=== PATIENT | male | born 1985 | race Two or more races ===

== ENCOUNTER 2024-09-07 21:00 | Inpatient (IN) | payer BC, MEDICAID, OTHER ==
[~2024-09-07] VITALS: Ht 188 cm; Wt 128.7 kg
[2024-09-07] MEDS ORDERED: NICOTINE POLACRILEX 2 MG LOZENGE BC PRN (23:15)
[2024-09-08] MEDS ORDERED: acetaminophen 325mg tablet PO PRN (03:00)
[2024-09-08] MEDS ORDERED: mag hydrox/Alum hydrox/simeth 30ml oral suspension PO PRN (03:00)
[2024-09-08] MEDS ORDERED: magnesium hydroxide 30ml (MOM) UD suspension PO PRN (03:00)
[2024-09-08 07:00] VITALS: RESP 16; O2SAT 98
[2024-09-08 08:00] VITALS: BP 107/67; PULSE 62; RESP 16; TEMP 98.4; O2SAT 98
[2024-09-08] MEDS: acetaminophen 325mg tablet PO PRN (08:13)
[2024-09-08] MEDS: nicotine 21mg patch - 24 hr TD SCH (08:13)
[2024-09-08 17:29] LABS: CHOL/HDL RATIO 2.5 (0.00-4.99); CHOLESTEROL 107 MG/DL (0-200); HDL CHOLESTEROL 43 MG/DL (35-60); LDL CHOLESTEROL 52 MG/DL (50-100); TRIGLYCERIDES 77 MG/DL (20-135)
[2024-09-08 19:00] VITALS: RESP 16; O2SAT 99
[2024-09-08 20:00] VITALS: BP 107/71; PULSE 71; RESP 16; TEMP 98.3; O2SAT 99
[2024-09-08] MEDS: NICOTINE POLACRILEX 2 MG LOZENGE BC PRN (20:51)
[2024-09-08] MEDS: quetiapine 100mg tablet PO PRN (21:33)
[2024-09-08] MEDS: diphenhydrAMINE 25mg capsule PO PRN (22:03)
[2024-09-09 07:00] VITALS: RESP 16; O2SAT 98
[2024-09-09 07:48] LABS: BASOPHILS # (AUTO) 0.1 X10'3 (0-0.2); BASOPHILS % (AUTO) 0.7 % (0-1); EOSINOPHILS # (AUTO) 0.3 X10'3 (0-0.9); EOSINOPHILS % (AUTO) 4.6 % (0-6); HEMATOCRIT 42.9 % (42.0-52.0); HEMOGLOBIN 14.4 g/dl (14.0-17.9); LYMPHOCYTES # (AUTO) 2.5 X10'3 (1.1-4.8); LYMPHOCYTES % (AUTO) 35.6 % (21-51); MEAN CORPUSCULAR HEMOGLOBIN 29.9 PG (27.0-31.0); MEAN CORPUSCULAR HGB CONC 33.5 g/dL (33.0-36.5); MEAN CORPUSCULAR VOLUME 89.3 FL (78-98); MEAN PLATELET VOLUME 7.4 FL (7.4-10.4); MONOCYTES # (AUTO) 0.7 X10'3 (0-0.9); MONOCYTES % (AUTO) 9.9 % (2-12); NEUTROPHILS # (AUTO) 3.4 X10'3 (1.8-7.7); NEUTROPHILS % (AUTO) 49.2 % (42-75); PLATELET COUNT 300 X10'3 (140-440); RED BLOOD COUNT 4.81 X10'6 (4.70-6.10); RED CELL DISTRIBUTION WIDTH 13.9 % (11.5-14.5); WHITE BLOOD COUNT 6.9 X10'3 (4.5-11.0)
[2024-09-09 08:00] VITALS: BP 118/67; PULSE 62; RESP 16; TEMP 97.8; O2SAT 98
[2024-09-09] MEDS ORDERED: NO HOME MEDS (08:08)
[2024-09-09 08:20] LABS: ALANINE AMINOTRANSFERASE 25 U/L (12-78); ALBUMIN 3.3 G/DL (3.4-5.0); ALBUMIN/GLOBULIN RATIO 0.8 (1.1-1.5); ALKALINE PHOSPHATASE 89 IU/L (46-116); ANION GAP 7 (8-16); ASPARTATE AMINO TRANSFERASE 13 U/L (10-37); BILIRUBIN,TOTAL 0.4 MG/DL (0.1-1.0); BLOOD UREA NITROGEN 12 MG/DL (7-18); BUN/CREATININE RATIO 15.2 (10.0-20.0); CALCIUM 8.7 MG/DL (8.5-10.1); CHLORIDE 107 MMOL/L (99-107); CHOL/HDL RATIO 2.4 (0.00-4.99); CHOLESTEROL 100 MG/DL (0-200); CREATININE 0.79 MG/DL (0.60-1.10); GLUCOSE 104 MG/DL (70-104); HDL CHOLESTEROL 41 MG/DL (35-60); LDL CHOLESTEROL 52 MG/DL (50-100); POTASSIUM 4.1 MMOL/L (3.5-5.1); SODIUM 138 MMOL/L (135-145); TOTAL CARBON DIOXIDE 24.1 MMOL/L (24-32); TOTAL PROTEIN 7.4 G/DL (6.4-8.2); TRIGLYCERIDES 75 MG/DL (20-135); eCRCL 146 ML/MIN; eGFR > 90 ML/MIN
[2024-09-09 09:23] LABS: HEMOGLOBIN A1C 5.5 % (4.5-6.2)
[2024-09-09 19:00] VITALS: RESP 18; O2SAT 99
[2024-09-09 20:03] VITALS: BP 157/69; PULSE 70; RESP 18; TEMP 98.4; O2SAT 99
[2024-09-09 20:05] VITALS: RESP 18; O2SAT 99
[2024-09-10 07:00] VITALS: RESP 20; O2SAT 98
[2024-09-10 08:00] VITALS: BP 140/73; PULSE 58; RESP 20; TEMP 97.2; O2SAT 98
[2024-09-10 18:23] VITALS: RESP 18; O2SAT 98
[2024-09-10 19:08] VITALS: BP 117/75; PULSE 84; RESP 20; TEMP 98.7; O2SAT 98
[2024-09-11 07:30] VITALS: BP 114/67; PULSE 68; RESP 14; TEMP 97.9; O2SAT 96
[2024-09-11 19:00] VITALS: RESP 17; O2SAT 99
[2024-09-11 20:00] VITALS: BP 152/79; PULSE 86; RESP 17; TEMP 98.4; O2SAT 99
[2024-09-12 07:45] VITALS: BP 122/64; PULSE 56; RESP 18; TEMP 97; O2SAT 98
[2024-09-12 19:00] VITALS: RESP 18; O2SAT 99
[2024-09-12 19:54] VITALS: BP 133/80; PULSE 74; RESP 18; TEMP 98.6; O2SAT 99
[2024-09-13 02:42] VITALS: RESP 18; O2SAT 99
[2024-09-13 07:30] VITALS: BP 104/65; PULSE 55; RESP 16; TEMP 97.5; O2SAT 98
[2024-09-13 19:00] VITALS: RESP 20; O2SAT 98
[2024-09-13 20:00] VITALS: BP 140/75; PULSE 92; RESP 20; TEMP 98.4; O2SAT 98
[2024-09-14 07:00] VITALS: RESP 17; O2SAT 99
[2024-09-14 08:00] VITALS: BP 128/69; PULSE 92; RESP 17; TEMP 98.3; O2SAT 99
== END 2024-09-14 14:56 | disposition home or self-care (01) | DRG 897 ==
LOC: ADULT MH 21:00
PROVIDERS: ADMIT Psychiatry & Neurology Psychiatry; ATTEND Psychiatry & Neurology Psychiatry
PROC: GZHZZZZ Group Psychotherapy (ICD-10-PCS; principal; 2024-09-08)
PROC: GZ51ZZZ Individual Psychotherapy, Behavioral (ICD-10-PCS; 2024-09-08)
DX: F15.259 Other stimulant dependence with stimulant-induced psychotic disorder, unspecified (principal); N39.0 Urinary tract infection, site not specified; R45.851 Suicidal ideations; Z59.00 Homelessness unspecified; F23 Brief psychotic disorder; F15.20 Other stimulant dependence, uncomplicated; E03.9 Hypothyroidism, unspecified; E66.9 Obesity, unspecified; F17.210 Nicotine dependence, cigarettes, uncomplicated; F32.A Depression, unspecified; I10 Essential (primary) hypertension; Z82.49 Family history of ischemic heart disease and other diseases of the circulatory system; Z83.3 Family history of diabetes mellitus; Z68.36 Body mass index [BMI] 36.0-36.9, adult
CPT/HCPCS: 36415; 80053; 80061; 83036; 84443; 85025; 87081; A6212; A6223; A6258; A6446; A6449; Q0163

== ENCOUNTER 2024-10-06 06:34 | Inpatient (IN) | payer MEDICAID ==
[~2024-10-06] VITALS: Ht 188 cm; Wt 128.3 kg
[~2024-10-06 06:34] MED LIST: NO HOME MEDS
[2024-10-06 11:17] VITALS: BP 109/60; PULSE 63; RESP 16; TEMP 97.5; O2SAT 97
[2024-10-06] MEDS ORDERED: acetaminophen 325mg tablet PO PRN ×2 (11:35)
[2024-10-06] MEDS ORDERED: diphenhydrAMINE 25mg capsule PO PRN (11:35)
[2024-10-06] MEDS ORDERED: magnesium hydroxide 30ml (MOM) UD suspension PO PRN (11:35)
[2024-10-06] MEDS ORDERED: loperamide 2mg capsule PO PRN (11:35)
[2024-10-06] MEDS ORDERED: mag hydrox/Alum hydrox/simeth 30ml oral suspension PO PRN (11:35)
[2024-10-06] MEDS: nicotine 21mg patch - 24 hr TD ONE (12:03)
[2024-10-06] MEDS: NICOTINE POLACRILEX 2 MG LOZENGE BC PRN (12:03)
[2024-10-06 13:15] VITALS: RESP 16; O2SAT 97
--- NOTE | 2024-10-06 15:33 | HISTORY AND PHYSICAL ---
History & Physical - Blank History and Physical CHIEF COMPLIANT AUDITORY HALLUCINATIONS AND SUICIDAL IDEATION HISTORY OF PRESENT ILLNESS 8-year-old male patient with suspected history of schizophrenia, presents to the emergency department on a 5150 hold patient apparently endorsing auditory hallucinations was holding a knife to his throat earlier, hallucinations telling him to kill himself. By knife he was holding a razor blade to his throat per [facility]. Patient brought multiple belongings in with him to the emergency department. Has not endorsed suicidal ideation in the emergency department but did when he was placed on a 5150 hold prior to arrival. Patient admits to polysubstance abuse and tells us that he has an iron man soon at home. Smokes two joints a week, drinks alcohol, says he is allergic to meth but still uses meth. CHART REVIEW Police Department dispatch [facility] to their lobby where client went and asked for help. Client reports that he is feeling suicidal in his having like ideas, looking at multiple items thinking of ways to kill himself. Client reports he had a razor blade to his throat earlier in intended on cutting it but was interrupted and that is when he went down to the police station. Client is responding to internal stimuli upon interviewing, paranoid of the cameras at the police station "shhh they can hear us." If we go outside so they are not spying on me. Client reports that he is neighbors are plotting against him and that he things they are going to hurt him and will hurt him if he thinks they are going to do that. Client has a flat affect, reports racing thoughts, increased suicidal ideation. Client had called [facility] earlier in the day and reports that he got to paranoid so he yelled ask staff to leave. Client was very apologetic about it. Client was placed on a 5150 DTS hold. ASSESSMENT The patient was interviewed in observation room. The patient was actively sitting in rec room appears to be watching TV. The patient endorses "Tired." The patient endorses "I was having suicidal ideation. I ended up back on meth. I was having meth induced psychosis. The patient endorses he has been doing meth for 20 years. The patient endorses he started Narcotic Anonymous (NA) 2 days to get off Meth. The patient endorses he went back to [facility] to get moved out of house and move back to [place] and he ended up using again after been sober for 2 weeks. The patient endorses he was substituting alcohol for meth. "I was drinking myself to sleep." "I know I am depressed that is why I self medicate with meth and alcohol." The patient is reluctant to take medications. "I self medicate, that is why I like meth it levels me out." "I feel needs to be on some place with a drug test me everyday and I am the around meth or alcohol." Denies SI. Denies HI. Denies AVH. The patient endorses adequate sleep and food. The patient is stable no acute distress noted. The patient is irritable, depressed, and engaged during session. Will continue daily assessment and adjusting treatment as needed. Closely monitor behavior and response to medication during hospitalization. Discussed treatment plan with patient. ASE/risks and benefits of chosen treatment. He verbalized understanding and consented to treatment. REVIEW OF LABS URINE DRUG SCREEN POSITIVE FOR AMPHETAMINES URINALYSIS NEGATIVE COVID NEGATIVE INFLUENZA A AND INFLUENZA B NEGATIVE WBC 9.0 RBC 4.77 HEMOGLOBIN 14.3 HEMATOCRIT 42.6 PLATELETS 285 SODIUM 142 POTASSIUM 3.6 CHLORIDE 110 ANION GAP 11 GLUCOSE 104 BUN 11 CREATININE 0.87 CALCIUM 9.5ALT 24 AST 21 FREE T4 0.82 TSH 3.20 MENTAL STATUS EXAM APPEARANCE:UNKEMPT. OBESE TALL MALE. WEARING GREEN SCRUBS. SPEECH: CIRCUMSTANTIAL, HYPERVERBAL EYE CONTACT: NORMAL AFFECT: FULL MOOD: DEPRESSED ORIENTATION IMPAIRMENT: NONE MEMORY IMPAIRMENT: NONE ATTENTION: FULL HALLUCINATIONS: NONE SUICIDALITY: NONE DELUSIONS: NONE BEHAVIOR: HYPERACTIVE JUDGMENT: POOR INSIGHT: POOR TREATMENT The patient is refusing medication. We will monitor patient a few days and if still refusing medications will do a Riese. Monitoring by Staff, Milieu, Group, and Individual counseling as needed -- According to the [place] Suicide Assessment the above named patient is on Q15 MINUTE CHECKS. [id number]- The patient does not have a good safety plan for discharge at this time. We are still titrating medications to an effective dose while maintaining a therapeutic environment to prevent decompensation and readmission. REVIEW OF Clinical notes [X ] RN notes [X] PCT documentation [X] SW notes Labs [ X] Medications [X] Care trends/care activity [X] Vitals [X] DISCUSSION WITH tamale machine feeder [X] Staff SW [X] Treatment Team [X] DISCHARGE UNSURE AT THIS TIME. [facility] OR [facility] Past Psychiatric History Past Psychiatric History DISCHARGE FROM [facility] LAST MON[facility] FOR ATTEMPTED SUICIDE Past Medical History Past Medical History SEE MEDICAL H AND P Past Surgical History Past Surgical History LEFT ANKLE SURGERY Past Family History Patient History: FH: heart disease Maternal grandmother FH: hypothyroidism MOTHER History of insulin dependent diabetes mellitus in mother Maternal grandmother History of non-insulin dependent diabetes mellitus in mother MOTHER Substance Abuse History Substance Abuse History TOBACCO DAILY MARIJUANA DAILY ALCOHOL WANTED 2 TIMES PER WEEK METHAMPHETAMINES DAILY Personal History Current Living Situation HOMELESS Marital & Relationship History . FOUR CHILDREN. SINGLE Sexual History DEFER Occupational History UNEMPLOYED Social Activity BORN AND RAISED IN [facility] [employer] Legal History DWI POSSESSION OF CONTROLLED SUBSTANCE DOMESTIC BATTERY History DENIES ANY HISTORY Developmental History Childhood GO, EMOTIONAL, VERBAL ABUSE FROM BOTH PARENTS Assessment/Plan Problems/Diagnosis: (1) Methamphetamine-induced psychotic disorder (2) Auditory hallucination CODING VISIT-PSYCHIATRY Date of Service: Oct 06, 2024 Billing Provider: SHAHRAM GOINS APRN Psych Common Visit Codes: [id number] INP/OBS CARE (High) SHAHRAM GOINS APRN Oct 06, 2024 15:33
[2024-10-06 20:00] VITALS: BP 148/75; PULSE 59; RESP 18; TEMP 98.7; O2SAT 98
[2024-10-07 07:00] VITALS: RESP 16
[2024-10-07] MEDS: nicotine 21mg patch - 24 hr TD SCH (07:47)
[2024-10-07 08:00] VITALS: RESP 16
[2024-10-07 08:36] LABS: CHOL/HDL RATIO 2.3 (0.00-4.99); CHOLESTEROL 117 MG/DL (0-200); HDL CHOLESTEROL 51 MG/DL (35-60); LDL CHOLESTEROL 52 MG/DL (50-100); THYROID STIMULATING HORMONE 6.13 ulU/ml (0.34-4.50); TRIGLYCERIDES 51 MG/DL (20-135)
--- NOTE | 2024-10-07 12:10 | PROGRESS NOTE ---
Progress Note Dictate Providers to CC ~ Central Line/PICC still needed: N\\A Antibiotic Ordered?: No MRSA Education MRSA Education Provided to pt: No Objective Vitals Vital Signs Date Time Temp Pulse Resp B/P (MAP) Pulse Ox O2 Delivery O2 Flow Rate FiO2 10/07/24 08:00 16 Room Air 10/06/24 20:00 98.7 59 148/75 (99) 98 Counseling Services Smoking & Tobacco Cessation: > 10 Minutes Problem\\Assessment\\Plan Problems/Diagnosis: (1) Methamphetamine-induced psychotic disorder (2) Auditory hallucination Psychiatrist's Progress Note Date of Service: Oct 07, 2024 Notes CHIEF COMPLIANT AUDITORY HALLUCINATIONS AND SUICIDAL IDEATION HISTORY OF PRESENT ILLNESS 8-year-old male patient with suspected history of schizophrenia, presents to the emergency department on a 5150 hold patient apparently endorsing auditory hallucinations was holding a knife to his throat earlier, hallucinations telling him to kill himself. By knife he was holding a razor blade to his throat per Mental Health. Patient brought multiple belongings in with him to the emergency department. Has not endorsed suicidal ideation in the emergency department but did when he was placed on a 5150 hold prior to arrival. Patient admits to polysubstance abuse and tells us that he has an iron man soon at home. Smokes two joints a week, drinks alcohol, says he is allergic to meth but still uses meth. CHART REVIEW Police Department dispatch [facility] to their lobby where client went and asked for help. Client reports that he is feeling suicidal in his having like ideas, looking at multiple items thinking of ways to kill himself. Client reports he had a razor blade to his throat earlier in intended on cutting it but was interrupted and that is when he went down to the police station. Client is responding to internal stimuli upon interviewing, paranoid of the cameras at the police station "shhh they can hear us." If we go outside so they are not spying on me. Client reports that he is neighbors are plotting against him and that he things they are going to hurt him and will hurt him if he thinks they are going to do that. Client has a flat affect, reports racing thoughts, increased suicidal ideation. Client had called [facility] earlier in the day and reports that he got to paranoid so he yelled ask staff to leave. Client was very apologetic about it. Client was placed on a 5150 DTS hold. ASSESSMENT The patient was interviewed in observation room. The patient was actively sitting in rec room appears to be watching TV. The patient endorses 'Okay." The patient endorses no worsening mental health symptoms. Denies SI. Denies HI. Denies AVH. The patient endorses adequate sleep and food. The patient is stable no acute distress noted. The patient is cooperative, calm, and engaged during session. The patient seems to be minimizing his symptoms. Staff report no abnormal behaviors. Will continue daily assessment and adjusting treatment as needed. Closely monitor behavior and response to medication during hospitalization. Appearnace: Other Speech: Other (CIRCUMSTANTIAL) Eye Contact: Normal Motor Activity: Normal Affect: Full Orientation Impairment: None Memory Impairment: None Attention: Normal Hallucinations: None Other: None Suicidality: None Homicidality: None Delusions: None Behavior: Cooperative Insight: Fair Judgment: Fair Treatment The patient is refusing medication Monitoring by Staff, Milieu, Group, and Individual counseling as needed -- According to the [place] Suicide Assessment the above named patient is on Q15 MINUTE CHECKS. [id number]- The patient does not have a good safety plan for discharge at this time. We are still titrating medications to an effective dose while maintaining a therapeutic environment to prevent decompensation and readmission. REVIEW OF Clinical notes [X ] RN notes [X] PCT documentation [X] SW notes Labs [ X] Medications [X] Care trends/care activity [X] Vitals [X] DISCUSSION WITH sign wirer [X] Staff SW [X] Treatment Team [X] Discharge UNSURE AT THIS TIME. [facility] OR [employer] CODING VISIT-PSYCHIATRY Date of Service: Oct 07, 2024 Billing Provider: SHAHRAM GOINS APRN Psych Common Visit Codes: [id number] INP/OBS CARE(Mod) SHAHRAM GOINS APRN Oct 07, 2024 12:10
[2024-10-07 19:00] VITALS: RESP 18; O2SAT 99
[2024-10-07 20:00] VITALS: BP 118/64; PULSE 70; RESP 18; TEMP 98.1; O2SAT 99
--- NOTE | 2024-10-07 21:01 | HISTORY AND PHYSICAL ---
History & Physical Providers to CC ~ History of Present Illness Reason for Admit\Complaint: Auditory hallucination and suicidal ideation History of Present Illness Patient is here in mental health unit because of suicidal ideation. Patient is already seen by psychiatric team. Psychiatric consult note reviewed. Patient admitted using meth recently. Patient has hypothyroidism and hypertension which is stable and currently not on any medications. Patient denies any other symptoms to me no other acute medical issues Allergies: Coded Allergies: povidone-iodine (Verified Allergy, Unknown, 09/08/24) Home Medications Home Medications Active Reported No Home Medications (Home Med List) Each Past Medical History Past Medical History Hypothyroidism, hypertension Past Surgical History Surgical History Comment Right ankle surgery Family History Family History: FH: heart disease Maternal grandmother FH: hypothyroidism MOTHER History of insulin dependent diabetes mellitus in mother Maternal grandmother History of non-insulin dependent diabetes mellitus in mother MOTHER Past Social History Social History Comment Smokes half a pack of cigarettes a day, drinks a few times a week, uses methamphetamines including snorting, smoking, and IV, smokes cannabis ROS ROS Review of system as mentioned above in HPI rest of the review of system unremarkable Exam Vitals: Vital Signs Date Time Temp Pulse Resp B/P (MAP) Pulse Ox O2 Delivery O2 Flow Rate FiO2 10/07/24 19:00 18 99 Room Air 10/06/24 20:00 98.7 59 148/75 (99) General: General-patient not in any acute distress, alert awake oriented, not ill-appearing/age-appropriate/looks comfortable HEENT-atraumatic normocephalic, neck supple without elevated JVD, no thyromegaly or carotid bruit. No lymphadenopathy bilaterally. Eyes-no icterus or pallor seen in eyes Chest-clear to auscultation bilaterally, breathing nonlabored no tachypnea, no wheezing, no crepitation, no crackles. Heart-S1-S2 normal, regular heart rate no murmur Abdomen bowel sounds positive on auscultation, soft nondistended nontender no guarding, no rigidity Skin no active skin rash Neurology-grossly intact, nonfocal alert awake oriented Extremity- no pedal edema able to move all 4 extremities Psychiatry - patient is not confused or agitated cooperated during physical examination Additional Plan # psychoses with suicidal ideation and suicidal gesture/ attempt Unknown if underlining psychiatric condition however the patient appears to use methamphetamines heavily which is a contributing factor. Psychiatry following as well as clinical social work aide # hypothyroidism- TSH 6.20 # hypertension- currently normotensive Monitor blood pressure Q shift Awaiting med reconciliation # Tobacco abuse-patient is using nicotine patch and smoking cessation counseling done with patient The Hospitalist service will continue to follow the patient. Date of Service: Oct 07, 2024 Billing Provider: JAMI MARQUES MD Common Visit Codes: [id number] INP/OBS CARE (LOW) JAMI MARQUES MD Oct 07, 2024 21:01
[2024-10-08 07:00] VITALS: RESP 16; O2SAT 96
--- NOTE | 2024-10-08 08:21 | PROGRESS NOTE ---
Progress Note Dictate Providers to CC ~ Central Line/PICC still needed: N\\A Antibiotic Ordered?: No MRSA Education MRSA Education Provided to pt: No Objective Vitals Vital Signs Date Time Temp Pulse Resp B/P (MAP) Pulse Ox O2 Delivery O2 Flow Rate FiO2 10/07/24 20:00 98.1 70 18 118/64 (82) 99 Room Air Counseling Services Smoking & Tobacco Cessation: > 10 Minutes Problem\\Assessment\\Plan Problems/Diagnosis: (1) Methamphetamine-induced psychotic disorder (2) Auditory hallucination Psychiatrist's Progress Note Date of Service: October 08, 2024 Notes CHART REVIEW Police Department dispatch [facility] to their lobby where client went and asked for help. Client reports that he is feeling suicidal in his having like ideas, looking at multiple items thinking of ways to kill himself. Client reports he had a razor blade to his throat earlier in intended on cutting it but was interrupted and that is when he went down to the police station. Client is responding to internal stimuli upon interviewing, paranoid of the cameras at the police station "shhh they can hear us." If we go outside so they are not spying on me. Client reports that he is neighbors are plotting against him and that he things they are going to hurt him and will hurt him if he thinks they are going to do that. Client has a flat affect, reports racing thoughts, increased suicidal ideation. Client had called [facility] earlier in the day and reports that he got to paranoid so he yelled ask staff to leave. Client was very apologetic about it. Client was placed on a 5150 DTS hold. ASSESSMENT The patient was interviewed in observation room. The patient was actively walking in hallway. The patient endorses 'Good." The patient endorses no worsening mental health symptoms. Denies SI. Denies HI. Denies AVH. The patient endorses adequate sleep and food. The patient is stable no acute distress noted. The patient is cooperative, calm, and engaged during session. Report no abnormal behaviors. Will continue daily assessment and adjusting treatment as needed. Closely monitor behavior and response to medication during hospitalization. Results Of any Diagn. Testing REVIEW OF LABS URINE DRUG SCREEN POSITIVE FOR AMPHETAMINES URINALYSIS NEGATIVE COVID NEGATIVE INFLUENZA A AND INFLUENZA B NEGATIVE WBC 9.0 RBC 4.77 HEMOGLOBIN 14.3 HEMATOCRIT 42.6 PLATELETS 285 SODIUM 142 POTASSIUM 3.6 CHLORIDE 110 ANION GAP 11 GLUCOSE 104 BUN 11 CREATININE 0.87 CALCIUM 9.5ALT 24 AST 21 FREE T4 0.82 TSH 3.20 Speech: Other (CIRCUMSTANTIAL) Eye Contact: Other (INTERMITTENT) Motor Activity: Normal Affect: Flat Orientation Impairment: None Memory Impairment: None Attention: Normal Hallucinations: None Other: None Suicidality: None Homicidality: None Delusions: None Behavior: Guarded Insight: Poor Judgment: Poor Treatment The patient is refusing medication Monitoring by Staff, Milieu, Group, and Individual counseling as needed -- According to the [place] Suicide Assessment the above named patient is on Q15 MINUTE CHECKS. [id number]- The patient does not have a good safety plan for discharge at this time. We are still titrating medications to an effective dose while maintaining a therapeutic environment to prevent decompensation and readmission. REVIEW OF Clinical notes [X ] RN notes [X] PCT documentation [X] SW notes Labs [ X] Medications [X] Care trends/care activity [X] Vitals [X] DISCUSSION WITH proctologist [X] Staff SW [X] Treatment Team [X] Discharge UNSURE AT THIS TIME. [facility] OR [employer] CODING VISIT-PSYCHIATRY Date of Service: October 08, 2024 Billing Provider: SHAHRAM GOINS APRN Psych Common Visit Codes: [id number] INP/OBS CARE(Mod) SHAHRAM GOINS APRN October 08, 2024 08:21
[2024-10-08 09:17] VITALS: BP 138/91; PULSE 82; RESP 16; TEMP 98.3; O2SAT 96
[2024-10-08 19:00] VITALS: RESP 14; O2SAT 96
[2024-10-08 20:00] VITALS: BP 94/61; PULSE 65; RESP 14; TEMP 97.7; O2SAT 96
[2024-10-09 07:00] VITALS: RESP 20; O2SAT 98
[2024-10-09 08:00] VITALS: BP 153/85; PULSE 60; RESP 20; TEMP 97.4; O2SAT 98
--- NOTE | 2024-10-09 09:07 | PROGRESS NOTE ---
Progress Note Dictate Providers to CC ~ Central Line/PICC still needed: N\\A Antibiotic Ordered?: No MRSA Education MRSA Education Provided to pt: No Objective Vitals Vital Signs Date Time Temp Pulse Resp B/P (MAP) Pulse Ox O2 Delivery O2 Flow Rate FiO2 10/08/24 20:00 97.7 65 14 94/61 (72) 96 Room Air Counseling Services Smoking & Tobacco Cessation: > 10 Minutes Problem\\Assessment\\Plan Problems/Diagnosis: (1) Methamphetamine-induced psychotic disorder (2) Auditory hallucination (3) Depression, unspecified Psychiatrist's Progress Note Date of Service: October 09, 2024 Notes CHART REVIEW Police Department dispatch [facility] to their lobby where client went and asked for help. Client reports that he is feeling suicidal in his having like ideas, looking at multiple items thinking of ways to kill himself. Client reports he had a razor blade to his throat earlier in intended on cutting it but was interrupted and that is when he went down to the police station. Client is responding to internal stimuli upon interviewing, paranoid of the cameras at the police station "shhh they can hear us." If we go outside so they are not spying on me. Client reports that he is neighbors are plotting against him and that he things they are going to hurt him and will hurt him if he thinks they are going to do that. Client has a flat affect, reports racing thoughts, increased suicidal ideation. Client had called [facility] earlier in the day and reports that he got to paranoid so he yelled ask staff to leave. Client was very apologetic about it. Client was placed on a 5150 DTS hold. ASSESSMENT The patient was interviewed in observation room. The patient was actively resting in bed with eyes closed. The patient endorses 'fine." "I am very de pressed." "I don't think medication will help me; I just need to get into rehab where I am not around the drugs and alcohol." Denies SI. Denies HI. Denies AVH. The patient endorses adequate sleep and food. The patient is stable no acute distress noted. The patient is guarded,depressed, and engaged during session. Per staff report no abnormal behaviors. Extensive education was given to the patient regarding medication to help with his depression. The patient verbalizes "I will think about it." The patient informed I will prescribe Remeron. The patient was informed I can not force him to take medication and he has the right to refuse. Per staff report the patient has no abnormal behaviors. Will continue daily assessment and adjusting treatment as needed. Closely monitor behavior and response to medication during hospitalization. Per belt worker's note referral was made to [employer]. Results Of any Diagn. Testing Results Of any Diagn. Testing REVIEW OF LABS URINE DRUG SCREEN POSITIVE FOR AMPHETAMINES URINALYSIS NEGATIVE COVID NEGATIVE INFLUENZA A AND INFLUENZA B NEGATIVE WBC 9.0 RBC 4.77 HEMOGLOBIN 14.3 HEMATOCRIT 42.6 PLATELETS 285 SODIUM 142 POTASSIUM 3.6 CHLORIDE 110 ANION GAP 11 GLUCOSE 104 BUN 11 CREATININE 0.87 CALCIUM 9.5ALT 24 AST 21 FREE T4 0.82 TSH 3.20 Appearnace: Other Speech: Impoverished Eye Contact: Avoidant Motor Activity: Normal Affect: Flat Mood: Depressed Orientation Impairment: None Memory Impairment: None Attention: Normal Hallucinations: None Other: None Suicidality: None Homicidality: None Delusions: None Behavior: Guarded Insight: Poor Judgment: Poor Treatment Initiate REMERON 15MG PO QHS-DEPRESSION/CRAVINGS Monitoring by Staff, Milieu, Group, and Individual counseling as needed -- According to the [place] Suicide Assessment the above named patient is on Q15 MINUTE CHECKS. VOLUNTARY REVIEW OF Clinical notes [X ] RN notes [X] PCT documentation [X] SW notes Labs [ X] Medications [X] Care trends/care activity [X] Vitals [X] DISCUSSION WITH ground equipment mechanic [X] Staff SW [X] Treatment Team [X] Discharge UNSURE AT THIS TIME. [facility] OR [employer] CODING VISIT-PSYCHIATRY Date of Service: October 09, 2024 Billing Provider: SHAHRAM GOINS APRN Psych Common Visit Codes: [id number] INP/OBS CARE(Mod) SHAHRAM GOINS APRN October 09, 2024 09:07
--- NOTE | 2024-10-09 17:46 | PROGRESS NOTE- Residence ---
Progress Note - Resident Providers to CC Resident Creating Document: LIZBET RIVAS RES CC: WILMAR VILCHIS MD ~ Central Line/PICC still needed: N\A Antibiotic Timeout Antibiotic Ordered?: No Subjective Patient is seen this evening. No complaints. He stated he had hypothyroidism and hypertension but he did not take any medications in the past Objective Vital Signs Date Time Temp Pulse Resp B/P (MAP) Pulse Ox O2 Delivery O2 Flow Rate FiO2 //25 08:00 97.4 60 20 153/85 (107) 98 Room Air General: Adult male, AAO x4, not in apparent distress Head: Normocephalic with an atraumatic Eyes: Pupils- 3mm, reacting to light, conjunctiva- anicteric Nose and throat: No polyps, septum- normal, no mucosal ulcers Neck: Supple, no lymphadenopathy, no carotid bruit Respiratory: No use of accessory muscles of respiration, Bilateral normal vesiscular breath sounds heard. No wheeze, rhochi or creps Cardiac: S1-S2 heard, rythm regular, no gallop/murmur Abdomen: non distended, no tenderness, no organomegaly, bowel sounds- heard Extremities: no clubbing, no pedal edema, no deformities, peripheral pulses- 2+ Skin: warm and dry, no rash, no purpura Neuro: No focal deficit, gross cranial nerve exam- normal Assessment Assessment 38 year male admitted to [facility] for psychosis with suicidal ideation Plan Plan Psychosis with suicidal ideation -management per Psychiatry Subclinical Hypothyroidism TSH 6.1 Repeat TSH in three months Hypertension -started on amlodipine 2.5 mg once a day Methamphetamine abuse- counseling given Tobacco abuse- continue nicotine patch, and gum Date of Service: October 09, 2024 Billing Provider: WILMAR VILCHIS MD Common Visit Codes: [id number] INP/OBS CARE(MOD) LIZBET RIVAS RES October 09, 2024 17:46 WILMAR VILCHIS MD October 09, 2024 21:22
[2024-10-09 19:00] VITALS: RESP 16; O2SAT 94
[2024-10-09 20:00] VITALS: BP 117/65; PULSE 68; RESP 16; TEMP 98.5; O2SAT 94
[2024-10-10 07:00] VITALS: RESP 16; O2SAT 97
[2024-10-10 08:00] VITALS: BP 99/55; PULSE 60; RESP 16; TEMP 97.3; O2SAT 97
[2024-10-10] MEDS: amLODIPine 2.5mg tablet PO SCH (08:00)
--- NOTE | 2024-10-10 15:13 | PROGRESS NOTE ---
Progress Note Dictate Providers to CC ~ Central Line/PICC still needed: N\\A Antibiotic Ordered?: No MRSA Education MRSA Education Provided to pt: No Objective Vitals Vital Signs Date Time Temp Pulse Resp B/P (MAP) Pulse Ox O2 Delivery O2 Flow Rate FiO2 10/10/24 08:00 78 10/10/24 08:00 97.3 16 99/55 (70) 97 Room Air Problem\\Assessment\\Plan Problems/Diagnosis: (1) Methamphetamine-induced psychotic disorder (2) Auditory hallucination (3) Depression, unspecified Psychiatrist's Progress Note Date of Service: October 10, 2024 Notes CHART REVIEW Police Department dispatch [facility] to their lobby where client went and asked for help. Client reports that he is feeling suicidal in his having like ideas, looking at multiple items thinking of ways to kill himself. Client reports he had a razor blade to his throat earlier in intended on cutting it but was interrupted and that is when he went down to the police station. Client is responding to internal stimuli upon interviewing, paranoid of the cameras at the police station "shhh they can hear us." If we go outside so they are not spying on me. Client reports that he is neighbors are plotting against him and that he things they are going to hurt him and will hurt him if he thinks they are going to do that. Client has a flat affect, reports racing thoughts, increased suicidal ideation. Client had called [facility] earlier in the day and reports that he got to paranoid so he yelled ask staff to leave. Client was very apologetic about it. Client was placed on a 5150 DTS hold. ASSESSMENT The patient was interviewed in observation room. The patient was actively resting in bed with eyes closed. The patient endorses 'I'm depressed." When patient was asked about medication and therapy he closed his eyes and would not say anything else. Denies SI. Denies HI. Denies AVH. The patient endorses adequate sleep and food. The patient is stable no acute distress noted. The patient is guarded, anxious, and disengaged during session. Per staff report no abnormal behaviors. Per staff report the patient has no abnormal behaviors. Will continue daily assessment and adjusting treatment as needed. Closely monitor behavior and response to medication during hospitalization. Results Of any Diagn. Testing REVIEW OF LABS URINE DRUG SCREEN POSITIVE FOR AMPHETAMINES URINALYSIS NEGATIVE COVID NEGATIVE INFLUENZA A AND INFLUENZA B NEGATIVE WBC 9.0 RBC 4.77 HEMOGLOBIN 14.3 HEMATOCRIT 42.6 PLATELETS 285 SODIUM 142 POTASSIUM 3.6 CHLORIDE 110 ANION GAP 11 GLUCOSE 104 BUN 11 CREATININE 0.87 CALCIUM 9.5ALT 24 AST 21 FREE T4 0.82 TSH 3.20 Appearnace: Other Speech: Impoverished Eye Contact: Avoidant Motor Activity: Normal Affect: Flat Mood: Anxious, Depressed Hallucinations: None Behavior: Guarded Insight: Poor Judgment: Poor Treatment REMERON 15MG PO QHS-DEPRESSION/CRAVINGS Monitoring by Staff, Milieu, Group, and Individual counseling as needed -- According to the [place] Suicide Assessment the above named patient is on Q15 MINUTE CHECKS. VOLUNTARY REVIEW OF Clinical notes [X ] RN notes [X] PCT documentation [X] SW notes Labs [ X] Medications [X] Care trends/care activity [X] Vitals [X] DISCUSSION WITH stretching press operator [X] Staff SW [X] Treatment Team [X] Discharge UNSURE AT THIS TIME. [facility] OR [place] CODING VISIT-PSYCHIATRY Date of Service: October 10, 2024 Billing Provider: SHAHRAM GOINS APRN Psych Common Visit Codes: [id number] INP/OBS CARE(Mod) SHAHRAM GOINS APRN October 10, 2024 15:13
[2024-10-10 18:58] VITALS: RESP 16; O2SAT 97
[2024-10-10] MEDS: chlorproMAZINE 25mg tablet PO PRN (19:32)
[2024-10-10] MEDS: hydrOXYzine 25 MG tablet PO PRN (19:32)
[2024-10-10 20:00] VITALS: RESP 16
[2024-10-10] MEDS: mirtazapine 15mg tablet PO SCH (20:19)
[2024-10-11 07:30] VITALS: BP 105/59; PULSE 70; RESP 16; TEMP 97.1; O2SAT 98
--- NOTE | 2024-10-11 11:25 | PROGRESS NOTE ---
Daily Progress Note Providers to CC No new complaint today, resting comfortably in the bed ~ Central Line/PICC still needed: No [place]-Non Protocol [place] Indications Met/Not Met: F/C Indications Not Met Antibiotic Timeout Antibiotic Ordered?: No MRSA Education MRSA Education Provided to pt: No Subjective As above Objective Vital Signs Date Time Temp Pulse Resp B/P (MAP) Pulse Ox O2 Delivery O2 Flow Rate FiO2 10/11/24 07:54 70 10/10/24 20:00 16 10/10/24 18:58 97 Room Air 10/10/24 08:00 97.3 99/55 (70) Vital signs, stable ,afebrile. Pulse Oximetry reflects adequate oxygenation. General: well developed, well nourished. Awake , alert, and oriented x4, resting comfortably in the bed, in no acute distress . Skin: Warm, dry, no pallor, no rash or petechiae. HEENT: Atraumatic, normocephalic, EOMI, anicteric sclera B; pink conjunctiva; PERRLA, normal oropharynx, moist oral and nasal mucosa. Tympanic membrane , nose , throat clear. Neck: Trachea midline. Supple, full range of motion, no JVD, bruit , hepatojug ular reflex , lymphadenopathy or masses, or other lesions Cardiac: Regular rhythm, regular rate no murmurs, rubs, or gallops. Normal S1 and S2, no S3 noticed. PMI is normal. Respiratory: Equal breath sounds bilaterally, no tachypnea; lungs clear to au scultation bilaterally, no wheezing ,rub or rales, or crackles. Chest wall is symmetric and without deformity. No signs of trauma. Chest wall is nontender. No signs of respiratory distress. Resonance is normal upon percussion bilaterally. Gastrointestinal: Abdomen symmetric, non-distended, soft, non-tender, normal bowel sounds x4 quadrant, normoactive, no hepatosplenomegaly , no masses , no bruit, no flank pain bilaterally. No voluntary guarding, rebound, or rigidity. No tenderness to percussion. No pulsatile masses. Equal femoral pulses. No Blackmon's sign or McBurney point tenderness. Back; no CVA tenderness bilaterally, no deformities. Neck and back are without deformity as well. No tenderness noted on palpation of the spinous processes. Spinous processes are midline. Cervical, thoracic, and lumbar paraspinal muscles are not tender and are without spasm. : normal external genitalia, without lesions, swelling, masses or tenderness. Musculoskeletal: Extremities, normal range of motion, non-tender, muscle strength 5/5 x 4. Negative Homans signs bilaterally on lower extremity. Distal pulses full symmetrical, no clubbing, cyanosis , edema. Neurological: Speech is clear, alert, and oriented x 4. No motor or sensory deficit, deep tendon reflexes normal, cerebellar intact. Cranial nerves II-XII intact. Psych: Alert and or appropriate, normal affect. Vascular: Good distal pulses, which are equal x4; capillary refill less than 2 seconds. Lymphatic, no lymphadenopathy. Problem\Assessment\Plan Assessment 38 year male admitted to [facility] for psychosis with suicidal ideation Plan Psychosis with suicidal ideation -management per Psychiatry Subclinical Hypothyroidism TSH 6.1 Repeat TSH in three months Hypertension -started on amlodipine 2.5 mg once a day Methamphetamine abuse- counseling given Tobacco abuse- continue nicotine patch, and gum Hospitalist team we will follow patient per hospital protocol Sepsis Screening Reassessment Date: October 11, 2024 Date of Service: October 11, 2024 Billing Provider: JAIME ROA MD Common Visit Codes: [id number] INP/OBS CARE(LOW) JAIME ROA MD October 11, 2024 11:25
--- NOTE | 2024-10-11 11:25 | PROGRESS NOTE ---
Progress Note Dictate Providers to CC ~ Central Line/PICC still needed: N\\A Antibiotic Ordered?: No MRSA Education MRSA Education Provided to pt: No Objective Vitals Vital Signs Date Time Temp Pulse Resp B/P (MAP) Pulse Ox O2 Delivery O2 Flow Rate FiO2 10/11/24 07:54 70 10/10/24 20:00 16 10/10/24 18:58 97 Room Air 10/10/24 08:00 97.3 99/55 (70) Problem\\Assessment\\Plan Problems/Diagnosis: (1) Methamphetamine-induced psychotic disorder (2) Auditory hallucination (3) Depression, unspecified Psychiatrist's Progress Note Date of Service: October 11, 2024 Notes CHART REVIEW Police Department dispatch [facility] to their lobby where client went and asked for help. Client reports that he is feeling suicidal in his having like ideas, looking at multiple items thinking of ways to kill himself. Client reports he had a razor blade to his throat earlier in intended on cutting it but was interrupted and that is when he went down to the police station. Client is responding to internal stimuli upon interviewing, paranoid of the cameras at the police station "shhh they can hear us." If we go outside so they are not spying on me. Client reports that he is neighbors are plotting against him and that he things they are going to hurt him and will hurt him if he thinks they are going to do that. Client has a flat affect, reports racing thoughts, increased suicidal ideation. Client had called [facility] earlier in the day and reports that he got to paranoid so he yelled ask staff to leave. Client was very apologetic about it. Client was placed on a 5150 DTS hold. ASSESSMENT The patient refused to be seen today. Results Of any Diagn. Testing REVIEW OF LABS URINE DRUG SCREEN POSITIVE FOR AMPHETAMINES URINALYSIS NEGATIVE COVID NEGATIVE INFLUENZA A AND INFLUENZA B NEGATIVE WBC 9.0 RBC 4.77 HEMOGLOBIN 14.3 HEMATOCRIT 42.6 PLATELETS 285 SODIUM 142 POTASSIUM 3.6 CHLORIDE 110 ANION GAP 11 GLUCOSE 104 BUN 11 CREATININE 0.87 CALCIUM 9.5ALT 24 AST 21 FREE T4 0.82 TSH 3.20 Insight: Poor Judgment: Poor Treatment REMERON 15MG PO QHS-DEPRESSION/CRAVINGS Monitoring by Staff, Milieu, Group, and Individual counseling as needed -- According to the [place] Suicide Assessment the above named patient is on Q15 MINUTE CHECKS. VOLUNTARY REVIEW OF Clinical notes [X ] RN notes [X] PCT documentation [X] SW notes Labs [ X] Medications [X] Care trends/care activity [X] Vitals [X] DISCUSSION WITH military pay clerk [X] Staff SW [X] Treatment Team [X] Discharge UNSURE AT THIS TIME. [facility] OR [facility] CODING VISIT-PSYCHIATRY Date of Service: October 11, 2024 Billing Provider: SHAHRAM GOINS APRN Psych Common Visit Codes: [id number] INP/OBS CARE(Mod) SHAHRAM GOINS APRN October 11, 2024 11:25
[2024-10-11 19:00] VITALS: RESP 16; O2SAT 97
[2024-10-11 20:00] VITALS: BP 101/68; PULSE 74; RESP 16; TEMP 98.8; O2SAT 97
[2024-10-11] MEDS: traZODone 50mg tablet PO PRN (22:03)
[2024-10-12 07:30] VITALS: BP 107/57; PULSE 53; RESP 12; TEMP 97.2; O2SAT 97
[2024-10-12 08:00] VITALS: BP_SYST 107; PULSE 53
[2024-10-12 13:35] VITALS: RESP 12; O2SAT 97
--- NOTE | 2024-10-12 13:52 | PROGRESS NOTE ---
Progress Note Dictate Providers to CC ~ Central Line/PICC still needed: N\A Antibiotic Ordered?: No MRSA Education MRSA Education Provided to pt: No Objective Vitals Vital Signs Date Time Temp Pulse Resp B/P (MAP) Pulse Ox O2 Delivery O2 Flow Rate FiO2 10/12/24 13:35 12 97 Room Air 10/12/24 08:00 53 10/12/24 07:30 97.2 107/57 (74) Counseling Services Smoking & Tobacco Cessation: > 10 Minutes Problem\Assessment\Plan Problems/Diagnosis: (1) Methamphetamine-induced psychotic disorder (2) Auditory hallucination (3) Depression, unspecified Psychiatrist's Progress Note Notes Insight: Fair Discharge CODING VISIT-PSYCHIATRY Date of Service: October 12, 2024 Billing Provider: SHAHRAM GOINS APRN Psych Common Visit Codes: [id number] INP/OBS CARE(Mod) SHAHRAM GOINS APRN October 12, 2024 13:52
--- NOTE | 2024-10-12 14:09 | DISCHARGE SUMMARY ---
Discharge Summary Providers to CC ~ Discharge Summary Admission Diagnosis: METHAMPHETAMINE INDUCED PSYCHOTIC DISORDER. AUDITORY HALLUCINATIONS. DEPR Hospital Course DATE OF ADMISSION: DATE OF DISCHARGE: Discharge Diagnosis\\Comment: METHAMPHETAMINE INDUCED PSYCHOTIC DISORDER AUDITORY HALLUCINATIONS DEPRESSION, UNSPECIFIED Operations\\Procedures: NONE Consultants: MEDICAL TEAM Complications: NONE Condition on DC: Stable 2 or more antipsychotic used: No 2/more antipsychotic addressed: No Does Patient smoke: Yes Smoking education given.: Yes Discharge Summary: CHART REVIEW Police Department dispatch [facility] to their lobby where client went and asked for help. Client reports that he is feeling suicidal in his having like ideas, looking at multiple items thinking of ways to kill himself. Client reports he had a razor blade to his throat earlier in intended on cutting it but was interrupted and that is when he went down to the police station. Client is responding to internal stimuli upon interviewing, paranoid of the cameras at the police station "shhh they can hear us." If we go outside so they are not spying on me. Client reports that he is neighbors are plotting against him and that he things they are going to hurt him and will hurt him if he thinks they are going to do that. Client has a flat affect, reports racing thoughts, increased annmarie cidal ideation. Client had called [facility] earlier in the day and reports that he got to paranoid so he yelled ask staff to leave. Client was very apologetic about it. Client was placed on a 5150 DTS hold. Patient actively seen and examined on day of discharge 10/12/2024, by myself, SAKSHI Broussard. The patient is interviewed in observation room. The patient endorses "I am not depressed; I am not suicidal." Denies SI. Denies HI. Denies AVH. Kiran was able to formulate a safety plan which includes going to the emergency room if symptoms return or worsen. Call [phone] or [phone] for immediate assistance if necessary. During his hospital stay, Kiran receive multidisciplinary treatment he adhered to his medication regimen and has been pleasant and cooperative. He denies any suicidal ideation (SI), homicidal ideation (HI), auditory/visual hallucination (HI). Staff has reported no behavioral issues, and the patient has been sleeping well, adequate food intake, with no mood or behavioral changes noted. The decision to discharge Kiran was made in consensus with the treatment team, including the social psychologist, community artist, and charge histotechnologist on duty. The patient was E-scribed a 30-day supply of medication. MENTAL STATUS EXAM APPEARANCE: APPROPRIATELY. DRESSED IN STREET CLOTHING. SPEECH: CIRCUMSTANCE EYE CONTACT: NORMAL AFFECT: CONGRUENT WITH MOOD MOOD: "I AM NOT DEPRESSED, i AM NOT SUICIDAL ORIENTATION IMPAIRMENT: NONE MEMORY IMPAIRMENT: NONE ATTENTION: NORMAL HALLUCINATIONS: NONE SUICIDALITY: NONE HOMICIDALITY: NONE DELUSIONS: NONE BEHAVIOR: COOPERATIVE JUDGMENT: FAIR INSIGHT: FAIR Continue Current Inpatient Psychotropic Regimen @ home Follow-Up with Psychiatric Provider Safety Plan Discussed DISCHARGE CONDITION: His readiness for discharge is supported by his stable mental status, adherence to treatment, and proactive approach to managing his mental health. Denies SI. Denies HI. Denies A/V/H. The patient has been informed to continue follow-up care to ensure ongoing support and monitoring. Patient discharged to [facility]. *Problems/Diagnosis: (1) Methamphetamine-induced psychotic disorder (2) Auditory hallucination (3) Depression, unspecified Total Time Spent on D/C: Up to 30 Minutes Counseling Services Smoking & Tobacco Cessation: 3-10 Minutes CODING VISIT-PSYCHIATRY Date of Service: October 12, 2024 Billing Provider: SHAHRAM GOINS APRN Psych Common Visit Codes: [id number] DISCH DAY <30min SHAHRAM GOINS APRN October 12, 2024 14:04
[2024-10-12] MEDS ORDERED: MIRT-87 PO (14:22)
[2024-10-12] MEDS ORDERED: AMLO2.5T5 PO (14:22)
== END 2024-10-12 15:10 | disposition home or self-care (01) | DRG 754 ==
LOC: ADULT MH 11:17 → UNDOADMIN 11:29
PROVIDERS: ADMIT Psychiatry & Neurology Psychiatry; ATTEND Psychiatry & Neurology Psychiatry
DX: F32.A Depression, unspecified (principal); R45.851 Suicidal ideations; R44.0 Auditory hallucinations; F15.959 Other stimulant use, unspecified with stimulant-induced psychotic disorder, unspecified; E03.9 Hypothyroidism, unspecified; I10 Essential (primary) hypertension; F12.90 Cannabis use, unspecified, uncomplicated; F17.210 Nicotine dependence, cigarettes, uncomplicated; Z82.49 Family history of ischemic heart disease and other diseases of the circulatory system; Z83.3 Family history of diabetes mellitus
CPT/HCPCS: 36415; 80061; 84443; 87081; 99285; Q0161; Q0177

== ENCOUNTER 2025-01-05 14:30 | Emergency (ER) | payer MEDICAID ==
[~2025-01-05] VITALS: Ht 188 cm; Wt 144.5 kg
[~2025-01-05 14:30] MED LIST changes: +AMLO2.5T5 PO; +MIRT-87 PO; -NO HOME MEDS
[2025-01-05 14:33] VITALS: BP 134/64; PULSE 88; RESP 18; O2SAT 98
--- NOTE | 2025-01-05 15:50 | Physician Documentation ---
History of Present Illness ~ Chief Complaint: Cold, cough & congestion Stated Complaint: COVID SYMPTOMS Time Seen by MD: 15:44 HPI 39-year-old male presents to the ED with a complaint of cold cough congestion. He states his work sent him to the ED to get a COVID test. Day of Onset: Jan 05, 2025 Medication Reconciliation Allergies: Coded Allergies: povidone-iodine (Verified Allergy, Unknown, 01/05/25) Scheduled Amlodipine Besylate (Amlodipine Besylate), 2.5 MG PO DAILY Mirtazapine (Mirtazapine), 15 MG PO HS Past Medical History Patient History: FH: heart disease Maternal grandmother FH: hypothyroidism MOTHER History of insulin dependent diabetes mellitus in mother Maternal grandmother History of non-insulin dependent diabetes mellitus in mother MOTHER Review of Systems All Other Systems at this time: Reviewed and Negative ROS As stated above in the HPI, otherwise all systems are reviewed and negative. Physical Exam Vital Signs: Temperature: 98.6, Source: Temporal, Heart Rate: 88, Respiratory Rate: 18, BP: 134/64, Pulse Oximetry: 98, Weight: 144.500 Oxygen Flow Rate: 0 Physical Exam General: Alert, no apparent distress. HEENT: PERRL, EOMI, no injection, moist mucous membranes. Respiratory: Lungs clear, no respiratory distress. . Cardiovascular: Regular rate and rhythm, no murmurs. . Neurologic: Oriented x4. Psychiatric: Normal mood and affect. Skin: Normal color, warm and dry. No edema, no ecchymosis. Progress Results/Orders Results/Orders Orders - BRYCE CUBA FOREST ENGINEER Covid19 Binax Poc Result Entry (01/05/25 15:47) Vital Signs 01/05/25 14:33 Temp 98.6 Pulse 88 Resp 18 B/P (MAP) 134/64 Pulse Ox 98 O2 Flow Rate 0 Laboratory Tests Test 01/05/25 15:46 SARS-CoV-2 Antigen (Rapid) Negative Medical Decision Making Findings Patient tested negative for COVID going to discharge him for his an employer's evaluation Differential Dx:Considerations: Include: Allergic rhinitis, Influenza, Otitis media, Peritonsillar abscess, Pharyngitis-Diphtheria, Pharyngitis-Streptoccal, Pharyngitis-Viral, Pneumonia, Pnuemonitis, Sinusitis, URI, Other Departure Disposition: 01 HOME / SELF CARE / HOMELESS Impression: Primary Impression: Acute respiratory infection Condition: Stable Discharge Instructions: Upper Respiratory Infection, Adult Referrals: NO PRIMARY CARE PROVIDER (PCP) Education Educated: Patient Educated regarding: diagnosis Signature Scribe Signature: n Attestation: Scribed for Bryce Cuba Acute Dialysis Registered Nurse by Bryce Kothari NP . 01/05/25 16:23 BRYCE CUBA NP Jan 05, 2025 15:50
[2025-01-05 17:08] VITALS: TEMP 98.6
== END 2025-01-05 17:09 | disposition home or self-care (01) ==
LOC: ER 14:31
DX: J22 Unspecified acute lower respiratory infection (principal); Z88.8 Allergy status to other drugs, medicaments and biological substances; Z79.899 Other long term (current) drug therapy; Z20.822 Contact with and (suspected) exposure to COVID-19
CPT/HCPCS: 36415; 87811; 99283

== ENCOUNTER 2025-01-21 20:16 | Emergency (ER) | payer MEDICAID ==
[~2025-01-21] VITALS: Ht 188 cm; Wt 101.6 kg
[2025-01-21 20:42] VITALS: TEMP 98.6
--- NOTE | 2025-01-21 21:20 | RADIOLOGY REPORT ---
INDICATION: Shoulder Pain RIGHT TECHNIQUE: 4 radiographic views of the right shoulder were obtained. COMPARISON: None FINDINGS/IMPRESSION: No acute fracture or dislocations. No significant degenerative changes. No acute soft tissue abnormalities. No radiographic foreign body. Visualized portions of the lungs are clear.
[2025-01-21] MEDS: HYDROcodone/acetaminophen 5mg/325mg tablet PO STA (22:20)
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
[2025-01-21 23:29] VITALS: BP 172/98; PULSE 78; RESP 16; O2SAT 98
== END 2025-01-21 23:30 | disposition home or self-care (01) ==
LOC: ER 20:16
DX: M25.511 Pain in right shoulder (principal); R51.9 Headache, unspecified; Z88.8 Allergy status to other drugs, medicaments and biological substances; W19.XXXA Unspecified fall, initial encounter; Y93.55 Activity, bike riding; Y92.89 Other specified places as the place of occurrence of the external cause; Y99.8 Other external cause status
CPT/HCPCS: 70450; 73030; 99284

== ENCOUNTER 2025-01-28 08:02 | Emergency (ER) | payer MEDICAID ==
[~2025-01-28] VITALS: Ht 188 cm; Wt 139.7 kg
[2025-01-28 08:08] VITALS: BP 167/103; PULSE 93; RESP 14; TEMP 98.4; O2SAT 98
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
== END 2025-01-28 10:26 | disposition home or self-care (01) ==
LOC: ER 08:03
DX: R60.9 Edema, unspecified (principal); Z88.8 Allergy status to other drugs, medicaments and biological substances
CPT/HCPCS: 99282